=== PATIENT | male | born 1985 | race African-American/Black ===

== ENCOUNTER 2016-11-01 14:04 | Emergency (ER) | payer MEDICAID ==
[~2016-11-01] VITALS: Ht 182.9 cm; Wt 104.3 kg
[~2016-11-01 14:04] MED LIST: ASPI81TA27 PO; ENO100SY SC; METO25TA5 PO; NITR0.4S29 SL; PANT1INJ3 PO; TRIA37.575 PO; WARF5TAB PO
[2016-11-01 14:15] VITALS: BP 162/114
== END 2016-11-01 22:39 | disposition left against medical advice (07) ==
LOC: ER 14:04
DX: R03.0 Elevated blood-pressure reading, without diagnosis of hypertension (principal); Z53.21 Procedure and treatment not carried out due to patient leaving prior to being seen by health care provider

== ENCOUNTER 2016-11-12 12:30 | Emergency (ER) | payer MEDICAID ==
[~2016-11-12] VITALS: Ht 185.4 cm; Wt 104.3 kg
[2016-11-12] MEDS ORDERED: cloNIDine HCL 0.1 MG TAB ONE (12:35)
[2016-11-12] MEDS ORDERED: cloNIDine HCL 0.1 MG TAB PO ONE (12:45)
[2016-11-12 13:38] VITALS: BP 137/95
== END 2016-11-12 14:11 | disposition home or self-care (01) ==
LOC: ER 12:34 → EDBD 12:34 → ER 14:11
DX: I10 Essential (primary) hypertension (principal); I48.91 Unspecified atrial fibrillation; J45.909 Unspecified asthma, uncomplicated; Z79.01 Long term (current) use of anticoagulants

== ENCOUNTER 2017-12-16 09:57 | Inpatient (IN) | payer MEDICAID ==
[~2017-12-16] VITALS: Ht 182.9 cm; Wt 100.9 kg
[2017-12-16] MEDS ORDERED: PRA1C PO (10:39)
[2017-12-16] MEDS ORDERED: NALT50TA5 PO (10:39)
[2017-12-16] MEDS ORDERED: GABA300C10 PO (10:39)
[2017-12-16] MEDS ORDERED: CHOL20007 OR (10:39)
[2017-12-16] MEDS ORDERED: QUET100T46 PO ×2 (10:39)
[2017-12-16] MEDS ORDERED: METO25TA5 PO (10:39)
[2017-12-16] MEDS ORDERED: TRAZ50TA2 PO (10:39)
[2017-12-16 10:41] LABS: Basophils # (auto) 0.1 uL; Basophils % (auto) 1.3 % (0.0-2.0); Eosinophils # (auto) 0 uL; Eosinophils % (auto) 0.6 % (0.0-7.0); Hematocrit 43.3 % (41.0-53.0); Hemoglobin 14.7 g/dL (13.5-17.5); Lymphocytes % (auto) 45.6 % (10.0-50.0); Mean Corpuscular Hemoglobin 31.2 pg (28.0-32.0); Mean Corpuscular Hgb Conc. 33.9 g/dL (32.0-36.0); Monocytes # (auto) 0.5 uL; Monocytes % (auto) 12.6 % (0.0-12.0); Neutrophils # (auto) 1.7 uL; Neutrophils % (auto) 39.9 % (37.0-80.0); Nucleated Red Blood Cells % 0.1 %; Platelet Count (auto) 223 10^3/uL (140-450); Red Blood Cells 4.71 10^6/uL (4.5-5.90); White Blood Cell 4.3 10^3/uL (4.4-10.8)
[2017-12-16] MEDS ORDERED: METOPROLOL TARTRATE 1MG/1ML-5ML VIAL IV ONE (10:45)
[2017-12-16 11:07] LABS: Alanine Aminotransferase 112 U/L (16-61); Albumin 3.6 g/dL (3.4-5.0); Alkaline Phosphatase 77 U/L (45-117); Anion Gap 9 (5-15); Aspartate Aminotransferase 123 U/L (15-37); BUN/Creatinine Ratio 10.3; Bilirubin, Total 0.3 mg/dL (0.2-1.0); Blood Urea Nitrogen 10 mg/dL (7-18); Calcium 8.6 mg/dL (8.5-10.1); Carbon Dioxide 26 mmol/L (21-32); Chloride 108 mmol/L (98-107); GFR African American 116 mL/min; GFR Non-African American 96 mL/min; Glucose 105 mg/dL (74-106); Potassium 3.6 mmol/L (3.5-5.1); Sodium 143 mmol/L (136-145); Total Protein 7.7 g/dL (6.4-8.2)
[2017-12-16] MEDS ORDERED: AMIODARONE HCL 150 MG in D5W 5% 100 ML IV ONE (11:15)
[2017-12-16] MEDS ORDERED: AMIODARONE HCL 900 MG in DEXTROSE 500 ML IV SCH (11:25)
[2017-12-16] MEDS ORDERED: LACTULOSE 20Gm/30ML SOLN PO PRN (11:30)
[2017-12-16] MEDS ORDERED: cloNIDine HCL 0.1 MG TAB PO ONE (11:30)
[2017-12-16] MEDS ORDERED: TEMAZEPAM 15 MG CAP PO PRN (11:30)
[2017-12-16] MEDS ORDERED: ACETAMINOPHEN 500 MG TAB PO PRN (11:30)
[2017-12-16] MEDS ORDERED: LORazepam 0.5 MG TAB PO PRN (11:30)
[2017-12-16] MEDS ORDERED: NITROGLYCERIN 0.4 MG SL TAB SL PRN (11:30)
[2017-12-16] MEDS ORDERED: METOPROLOL TARTRATE 25 MG TAB PO ONE (12:00)
[2017-12-16] MEDS ORDERED: DIGOXIN (250MCG/ML) 2 ML AMPULE IV ONE (12:00)
[2017-12-16] MEDS: PROMETHAZINE HCL 25 MG/ML 1ML IV PRN ×2 (12:00→19:40)
[2017-12-16 12:06] LABS: INR 1.03 (0.9-1.15); Partial Thromboplastin Time 26.8 sec (22.64-33.71); Prothrombin Time 11.2 sec (9.37-12.3)
[2017-12-16] MEDS ORDERED: THIAMINE 100mg/ml INJ (200mg/2ml VIAL) IV ONE (12:15)
[2017-12-16] MEDS ORDERED: chlordiazePOXIDE HCL 25 MG CAP PO PRN (12:15)
[2017-12-16] MEDS ORDERED: IOHEXOL 350 MG/ML 100ML IJ ONE (12:51)
[2017-12-16 13:04] LABS: Amylase 74 U/L (25-115); Lipase 223 U/L (73-393)
[2017-12-16 13:20] VITALS: BP 154/93
[2017-12-16] MEDS: GABAPENTIN 300 MG CAP PO SCH ×2 (15:40→21:45)
[2017-12-16] MEDS: ENALAPRIL MALEATE 2.5 MG TAB PO SCH (15:41)
[2017-12-16 16:00] VITALS: BP 152/107
[2017-12-16] MEDS ORDERED: LABETALOL HCL 5 MG/ML ML 20ML VIAL IV PRN (17:15)
[2017-12-16] MEDS: chlordiazePOXIDE HCL 5 MG CAP PO SCH ×2 (17:30→23:40)
[2017-12-16] MEDS: WARFARIN SODIUM 5 MG TAB PO SCH (17:30)
[2017-12-16] MEDS: PRAZOSIN HCL 1 MG CAP PO SCH (17:31)
[2017-12-16] MEDS: ENOXAPARIN SOD 100 MG/1 ML SYRINGE SC SCH (17:31)
[2017-12-16 20:00] VITALS: BP 111/71
[2017-12-16] MEDS: AMIODARONE HCL 200 MG TAB PO SCH (21:45)
[2017-12-16] MEDS: QUEtiapine FUMARATE 100 MG TAB PO SCH (21:45)
[2017-12-16] MEDS: traZODone HCL 50 MG TAB PO SCH (21:45)
[2017-12-16] MEDS: METOPROLOL TARTRATE 25 MG TAB PO SCH (21:46)
[2017-12-16 23:50] VITALS: BP 116/74
[2017-12-17 04:01] VITALS: BP 127/87
[2017-12-17] MEDS: ENOXAPARIN SOD 100 MG/1 ML SYRINGE SC SCH ×2 (05:49→18:00)
[2017-12-17] MEDS: chlordiazePOXIDE HCL 5 MG CAP PO SCH ×4 (05:49→23:06)
[2017-12-17] MEDS: GABAPENTIN 300 MG CAP PO SCH ×3 (05:49→21:43)
[2017-12-17 06:07] LABS: Urine Bacteria NONE SEEN /hpf (None Seen); Urine Blood Negative /uL (Negative); Urine Specific Gravity 1.028 (1.001-1.035); Urine WBC <1 /hpf (0 - 3)
[2017-12-17 06:19] LABS: Basophils # (auto) 0.1 uL; Basophils % (auto) 0.8 % (0.0-2.0); Eosinophils # (auto) 0.1 uL; Eosinophils % (auto) 0.9 % (0.0-7.0); Hematocrit 41.1 % (41.0-53.0); Hemoglobin 13.7 g/dL (13.5-17.5); Lymphocytes # (auto) 2.3 uL; Lymphocytes % (auto) 35.9 % (10.0-50.0); Mean Corpuscular Hemoglobin 31.2 pg (28.0-32.0); Mean Corpuscular Hgb Conc. 33.3 g/dL (32.0-36.0); Mean Corpuscular Volume 93.7 fL (80.0-100.0); Monocytes # (auto) 0.7 uL; Monocytes % (auto) 11.2 % (0.0-12.0); Neutrophils # (auto) 3.2 uL; Neutrophils % (auto) 51.2 % (37.0-80.0); Nucleated Red Blood Cells % 0.1 %; Platelet Count (auto) 205 10^3/uL (140-450); Red Blood Cells 4.39 10^6/uL (4.5-5.90); White Blood Cell 6.3 10^3/uL (4.4-10.8)
[2017-12-17 06:21] LABS: INR 1.09 (0.9-1.15); Partial Thromboplastin Time 28.4 sec (22.64-33.71); Prothrombin Time 11.9 sec (9.37-12.3)
[2017-12-17 06:30] LABS: Alanine Aminotransferase 99 U/L (16-61); Albumin 3.3 g/dL (3.4-5.0); Alkaline Phosphatase 67 U/L (45-117); Anion Gap 8 (5-15); Aspartate Aminotransferase 86 U/L (15-37); BUN/Creatinine Ratio 8.6; Bilirubin, Total 0.4 mg/dL (0.2-1.0); Blood Urea Nitrogen 10 mg/dL (7-18); Calcium 8.1 mg/dL (8.5-10.1); Carbon Dioxide 27 mmol/L (21-32); Chloride 106 mmol/L (98-107); Cholesterol 127 mg/dL (< 200); GFR African American 94 mL/min; GFR Non-African American 78 mL/min; Glucose 96 mg/dL (74-106); HDL Cholesterol 54 mg/dL (40-59); Potassium 3.7 mmol/L (3.5-5.1); Sodium 141 mmol/L (136-145); Total Protein 6.7 g/dL (6.4-8.2); Triglycerides 552 mg/dL (< 150)
[2017-12-17 06:30] LABS: Amphetamine Screen, Urine NEGATIVE (NEGATIVE); Barbiturate Scree,Urine NEGATIVE (NEGATIVE); Benzodiazephine Screen, Urine NEGATIVE (NEGATIVE); Cannabinoid Screen, Urine NEGATIVE (NEGATIVE); Cocaine Screen, Urine NEGATIVE (NEGATIVE); Opiate Scree,Urine NEGATIVE (NEGATIVE); Phencyclidine Screen, Urine NEGATIVE (NEGATIVE)
[2017-12-17 08:00] VITALS: BP 148/99
[2017-12-17] MEDS: THIAMINE 100mg/ml INJ (200mg/2ml VIAL) IV SCH (10:29)
[2017-12-17] MEDS: TRIAMTERENE/HCTZ 37.5/25 MG CAP PO SCH (10:29)
[2017-12-17] MEDS: PANTOPRAZOLE 40 MG TAB PO SCH (10:29)
[2017-12-17] MEDS: ENALAPRIL MALEATE 2.5 MG TAB PO SCH (10:30)
[2017-12-17] MEDS: METOPROLOL TARTRATE 25 MG TAB PO SCH ×2 (10:30→21:43)
[2017-12-17] MEDS: ASPirin-EC 81 mg tab PO SCH (10:31)
[2017-12-17] MEDS: AMIODARONE HCL 200 MG TAB PO SCH (10:31)
[2017-12-17 12:00] VITALS: BP 142/90
[2017-12-17] MEDS ORDERED: SIMETHICONE 80 MG CHEWABLE TABLET PO ONE (15:45)
[2017-12-17] MEDS ORDERED: SIMETHICONE 80 MG CHEWABLE TABLET PO PRN (15:45)
[2017-12-17 16:00] VITALS: BP 138/87
[2017-12-17] MEDS: WARFARIN SODIUM 5 MG TAB PO SCH (17:58)
[2017-12-17] MEDS: PRAZOSIN HCL 1 MG CAP PO SCH (17:58)
[2017-12-17] MEDS: traZODone HCL 50 MG TAB PO SCH (21:41)
[2017-12-17] MEDS: QUEtiapine FUMARATE 100 MG TAB PO SCH (21:44)
[2017-12-17 22:00] VITALS: BP 131/84
[2017-12-18 05:00] VITALS: BP 128/77
[2017-12-18] MEDS: ENOXAPARIN SOD 100 MG/1 ML SYRINGE SC SCH (05:24)
[2017-12-18] MEDS: chlordiazePOXIDE HCL 5 MG CAP PO SCH ×2 (05:24→12:00)
[2017-12-18] MEDS: GABAPENTIN 300 MG CAP PO SCH ×2 (05:24→13:44)
[2017-12-18 07:30] LABS: INR 1.14 (0.9-1.15); Partial Thromboplastin Time 29.4 sec (22.64-33.71); Prothrombin Time 12.4 sec (9.37-12.3)
[2017-12-18 07:40] LABS: Basophils # (auto) 0 uL; Basophils % (auto) 0.9 % (0.0-2.0); Eosinophils # (auto) 0.1 uL; Eosinophils % (auto) 1.8 % (0.0-7.0); Hematocrit 43.3 % (41.0-53.0); Hemoglobin 14.6 g/dL (13.5-17.5); Lymphocytes # (auto) 1.3 uL; Lymphocytes % (auto) 26.6 % (10.0-50.0); Mean Corpuscular Hemoglobin 31.4 pg (28.0-32.0); Mean Corpuscular Hgb Conc. 33.6 g/dL (32.0-36.0); Mean Corpuscular Volume 93.2 fL (80.0-100.0); Monocytes # (auto) 0.6 uL; Monocytes % (auto) 11.6 % (0.0-12.0); Neutrophils # (auto) 2.8 uL; Neutrophils % (auto) 59.1 % (37.0-80.0); Nucleated Red Blood Cells % 0.2 %; Platelet Count (auto) 199 10^3/uL (140-450); Red Blood Cells 4.64 10^6/uL (4.5-5.90); Red Cell Distribution Width 14.8 % (11.8-14.3); White Blood Cell 4.8 10^3/uL (4.4-10.8)
[2017-12-18 08:00] VITALS: BP 117/73
[2017-12-18 09:06] VITALS: BP 141/96
[2017-12-18] MEDS: THIAMINE 100mg/ml INJ (200mg/2ml VIAL) IV SCH (09:55)
[2017-12-18] MEDS: PANTOPRAZOLE 40 MG TAB PO SCH (09:56)
[2017-12-18] MEDS: TRIAMTERENE/HCTZ 37.5/25 MG CAP PO SCH (09:56)
[2017-12-18] MEDS: ASPirin-EC 81 mg tab PO SCH (09:56)
[2017-12-18] MEDS: METOPROLOL TARTRATE 25 MG TAB PO SCH (09:56)
[2017-12-18] MEDS: ENALAPRIL MALEATE 2.5 MG TAB PO SCH (09:56)
[2017-12-18] MEDS ORDERED: AMIODARONE HCL 200 MG TAB PO SCH (10:00)
[2017-12-18 11:57] VITALS: BP 147/87
[2017-12-18] MEDS ORDERED: MET25T PO (13:53)
[2017-12-18 13:58] VITALS: BP 147/87
[2017-12-18] MEDS ORDERED: METOPROLOL TARTRATE 25 MG TAB PO SCH (22:00)
[2017-12-19 09:39] LABS: Hepatitis B Surface Antibody Positive
[2017-12-19] MEDS ORDERED: THIAMINE HCL 100 MG TAB PO SCH (10:00)
[2017-12-19 10:16] LABS: Hepatitis A Total Antibody Positive
[2017-12-19 13:34] LABS: Hepatitis B Core Total AB Negative; Hepatitis C Antibody Negative (Negative)
== END 2017-12-18 14:27 | disposition home or self-care (01) | DRG 194 ==
LOC: EDBD 09:57 → ER 09:57 → TELE 09:58 → DOU IN ICU 13:18 → TELE-EAST 12-17 20:16
PROVIDERS: ADMIT Internal Medicine; ATTEND Internal Medicine
DX: I11.0 Hypertensive heart disease with heart failure (principal); D68.69 Other thrombophilia; I48.0 Paroxysmal atrial fibrillation; I50.31 Acute diastolic (congestive) heart failure; F43.10 Post-traumatic stress disorder, unspecified; R00.0 Tachycardia, unspecified; F10.10 Alcohol abuse, uncomplicated; E78.1 Pure hyperglyceridemia; J45.909 Unspecified asthma, uncomplicated; Z79.82 Long term (current) use of aspirin; Z82.49 Family history of ischemic heart disease and other diseases of the circulatory system; Z86.711 Personal history of pulmonary embolism; Z83.3 Family history of diabetes mellitus; Z91.19 Patient's noncompliance with other medical treatment and regimen
CPT/HCPCS: 36415; 71045; 71260; 74177; 76705; 80053; 80061; 80307; 81001; 82150; 82550; 83690; 83880; 84443; 84484; 85025; 85379; 85610; 85652; 85730; 86141; 86704; 86706; 86708; 86803; 87081; 87340; 93005; 93306; 96374; 96375; 99291; J7060

== ENCOUNTER 2018-03-02 19:30 | Inpatient (IN) | payer MEDICAID, OTHER ==
[~2018-03-02] VITALS: Ht 182.9 cm; Wt 103.4 kg
[~2018-03-02 19:30] MED LIST changes: +CHOL20007 OR; -ENO100SY SC; +GABA300C10 PO; +MET25T PO; -METO25TA5 PO; +PRA1C PO; +QUET100T46 PO; +TRAZ50TA2 PO; -WARF5TAB PO
[2018-03-02] MEDS ORDERED: METOPROLOL TARTRATE 50 MG TAB PO ONE (19:45)
[2018-03-02] MEDS ORDERED: DIGOXIN (250MCG/ML) 2 ML AMPULE IV ONE (19:45)
[2018-03-02] MEDS ORDERED: LORazepam 2MG/ML-1ML VIAL ONE (19:54)
[2018-03-02] MEDS ORDERED: LORazepam 2MG/ML-1ML VIAL IV ONE (20:00)
[2018-03-02] MEDS ORDERED: THIAMINE INJ 100 MG, MULTIPLE VITAMIN 10 ML, FOLIC ACID 1 MG, MAGNESIUM SULF SDV 50% 8 ... IV STA ×5 (20:03)
[2018-03-02 20:08] LABS: Basophils # (auto) 0.1 uL; Basophils % (auto) 1.9 % (0.0-2.0); Eosinophils # (auto) 0.1 uL; Eosinophils % (auto) 1.1 % (0.0-7.0); Hematocrit 43.3 % (41.0-53.0); Hemoglobin 14.5 g/dL (13.5-17.5); Lymphocytes # (auto) 2.1 uL; Lymphocytes % (auto) 42.2 % (10.0-50.0); Mean Corpuscular Hgb Conc. 33.4 g/dL (32.0-36.0); Mean Corpuscular Volume 95.7 fL (80.0-100.0); Monocytes # (auto) 0.6 uL; Monocytes % (auto) 12.2 % (0.0-12.0); Neutrophils # (auto) 2.1 uL; Neutrophils % (auto) 42.6 % (37.0-80.0); Nucleated Red Blood Cells % 0.1 %; Platelet Count (auto) 203 10^3/uL (140-450); Red Blood Cells 4.53 10^6/uL (4.5-5.90); Red Cell Distribution Width 13.8 % (11.8-14.3)
[2018-03-02 20:23] LABS: Alanine Aminotransferase 173 U/L (16-61); Albumin 3.4 g/dL (3.4-5.0); Anion Gap 13 (5-15); Aspartate Aminotransferase 125 U/L (15-37); BUN/Creatinine Ratio 9.2; Blood Urea Nitrogen 8 mg/dL (7-18); Calcium 7.7 mg/dL (8.5-10.1); Carbon Dioxide 19 mmol/L (21-32); Chloride 112 mmol/L (98-107); GFR African American 132 mL/min; GFR Non-African American 109 mL/min; Glucose 96 mg/dL (74-106); Potassium 3.8 mmol/L (3.5-5.1); Sodium 144 mmol/L (136-145)
[2018-03-02 20:26] LABS: Alkaline Phosphatase 72 U/L (45-117); Bilirubin, Total 0.2 mg/dL (0.2-1.0); Total Protein 7.1 g/dL (6.4-8.2)
[2018-03-02 20:31] LABS: Partial Thromboplastin Time 25.4 sec (23.78-33.04); Prothrombin Time 10.7 sec (9.27-12.13)
[2018-03-02] MEDS ORDERED: METOPROLOL TARTRATE 1MG/1ML-5ML VIAL IV ONE (20:45)
[2018-03-02 21:48] LABS: Urine Bacteria NONE SEEN /hpf (None Seen); Urine Blood Negative /uL (Negative); Urine Specific Gravity 1.005 (1.001-1.035); Urine WBC <1 /hpf (0 - 3)
[2018-03-02 22:01] LABS: Amphetamine Screen, Urine NEGATIVE (NEGATIVE); Barbiturate Scree,Urine NEGATIVE (NEGATIVE); Benzodiazephine Screen, Urine NEGATIVE (NEGATIVE); Cannabinoid Screen, Urine NEGATIVE (NEGATIVE); Cocaine Screen, Urine NEGATIVE (NEGATIVE); Opiate Scree,Urine NEGATIVE (NEGATIVE); Phencyclidine Screen, Urine NEGATIVE (NEGATIVE)
[2018-03-02] MEDS ORDERED: MORPHINE SULF INJ 2 MG/ML SYRINGE 1ML IV PRN (23:00)
[2018-03-02] MEDS ORDERED: NITROGLYCERIN 0.4 MG SL TAB SL PRN (23:00)
[2018-03-02] MEDS ORDERED: ONDANSETRON HCL 4 MG/2 ML VIAL IV PRN (23:00)
[2018-03-02] MEDS ORDERED: TEMAZEPAM 15 MG CAP PO PRN (23:00)
[2018-03-02] MEDS ORDERED: ACETAMINOPHEN 325 MG TAB PO PRN (23:00)
[2018-03-03] MEDS ORDERED: LORA1TAB12 PO (01:53)
[2018-03-03] MEDS ORDERED: HYDR50TA69 PO (01:53)
[2018-03-03] MEDS ORDERED: SERT-160 PO (01:53)
[2018-03-03] MEDS ORDERED: OMEP20TA PO (01:53)
[2018-03-03] MEDS ORDERED: MULTCAP45 PO (01:53)
[2018-03-03 05:00] VITALS: BP 130/75
[2018-03-03] MEDS: GABAPENTIN 300 MG CAP PO SCH ×3 (05:45→21:46)
[2018-03-03 08:00] VITALS: BP 114/73
[2018-03-03 08:23] LABS: Basophils # (auto) 0.1 uL; Basophils % (auto) 1.1 % (0.0-2.0); Eosinophils # (auto) 0.1 uL; Eosinophils % (auto) 2.6 % (0.0-7.0); Hematocrit 43.5 % (41.0-53.0); Hemoglobin 14.4 g/dL (13.5-17.5); Lymphocytes # (auto) 2.4 uL; Lymphocytes % (auto) 49.2 % (10.0-50.0); Mean Corpuscular Hemoglobin 31.5 pg (28.0-32.0); Mean Corpuscular Volume 95.4 fL (80.0-100.0); Monocytes # (auto) 0.6 uL; Monocytes % (auto) 11.6 % (0.0-12.0); Neutrophils # (auto) 1.7 uL; Neutrophils % (auto) 35.5 % (37.0-80.0); Nucleated Red Blood Cells % 0.1 %; Platelet Count (auto) 211 10^3/uL (140-450); Red Blood Cells 4.56 10^6/uL (4.5-5.90); Red Cell Distribution Width 13.8 % (11.8-14.3); White Blood Cell 4.9 10^3/uL (4.4-10.8)
[2018-03-03 08:42] LABS: Albumin 3.2 g/dL (3.4-5.0); BUN/Creatinine Ratio 7.4; Bilirubin, Total 0.3 mg/dL (0.2-1.0); Calcium 7.9 mg/dL (8.5-10.1); Potassium 3.9 mmol/L (3.5-5.1); Total Protein 7.1 g/dL (6.4-8.2)
[2018-03-03 09:00] VITALS: BP 114/73
[2018-03-03] MEDS: ENOXAPARIN SOD 40 MG/0.4 ML SYRINGE SC SCH (09:15)
[2018-03-03] MEDS: TRIAMTERENE/HCTZ 75/50MG TABLET PO SCH (09:15)
[2018-03-03] MEDS: FAMOTIDINE 20 MG TAB PO SCH ×2 (09:16→21:46)
[2018-03-03] MEDS: METOPROLOL TARTRATE 50 MG TAB PO SCH ×2 (09:16→22:09)
[2018-03-03] MEDS: ASPirin 81 mg TAB PO SCH (09:16)
[2018-03-03 13:00] VITALS: BP 154/92
[2018-03-03 17:00] VITALS: BP 156/106
[2018-03-03 22:00] VITALS: BP 154/105
[2018-03-03] MEDS ORDERED: QUEtiapine FUMARATE 100 MG TAB PO SCH (22:00)
[2018-03-04 05:00] VITALS: BP 127/80
[2018-03-04] MEDS: GABAPENTIN 300 MG CAP PO SCH ×2 (06:29→13:40)
[2018-03-04 08:00] VITALS: BP 141/95
[2018-03-04 09:00] VITALS: BP 141/95
[2018-03-04] MEDS ORDERED: AMIODARONE HCL 200 MG TAB PO SCH (10:00)
[2018-03-04] MEDS: ASPirin 81 mg TAB PO SCH (10:17)
[2018-03-04] MEDS: TRIAMTERENE/HCTZ 75/50MG TABLET PO SCH (10:19)
[2018-03-04] MEDS: METOPROLOL TARTRATE 50 MG TAB PO SCH (10:19)
[2018-03-04] MEDS: FAMOTIDINE 20 MG TAB PO SCH (10:20)
[2018-03-04] MEDS: ENOXAPARIN SOD 40 MG/0.4 ML SYRINGE SC SCH (10:20)
[2018-03-04] MEDS ORDERED: LACTULOSE 20Gm/30ML SOLN PO ONE (10:45)
[2018-03-04] MEDS ORDERED: LACTULOSE 20Gm/30ML SOLN PO PRN (10:45)
[2018-03-04 13:00] VITALS: BP 145/98
[2018-03-04 13:44] VITALS: BP 145/98
== END 2018-03-04 15:00 | disposition home or self-care (01) | DRG 896 ==
LOC: EDBD 19:30 → ER 19:31 → TELE 19:32 → TELE-WESTW 03-03 00:55
PROVIDERS: ADMIT Nurse Practitioner; ATTEND Family Medicine
DX: F10.129 Alcohol abuse with intoxication, unspecified (principal); G92 Toxic encephalopathy; I50.31 Acute diastolic (congestive) heart failure; I48.92 Unspecified atrial flutter; I47.1 Supraventricular tachycardia; I11.0 Hypertensive heart disease with heart failure; I48.0 Paroxysmal atrial fibrillation; E66.9 Obesity, unspecified; E78.1 Pure hyperglyceridemia; Z68.30 Body mass index [BMI] 30.0-30.9, adult; E78.5 Hyperlipidemia, unspecified; F32.9 Major depressive disorder, single episode, unspecified; F43.10 Post-traumatic stress disorder, unspecified; Y90.9 Presence of alcohol in blood, level not specified; I08.0 Rheumatic disorders of both mitral and aortic valves; J45.909 Unspecified asthma, uncomplicated; Z82.49 Family history of ischemic heart disease and other diseases of the circulatory system; Z86.711 Personal history of pulmonary embolism; Z83.3 Family history of diabetes mellitus; Z91.19 Patient's noncompliance with other medical treatment and regimen
CPT/HCPCS: 36415; 71045; 80053; 80307; 80320; 81001; 83880; 84484; 85025; 85379; 85610; 85730; 93005; 94761; 96365; 96375; J2405

== ENCOUNTER 2018-05-23 21:59 | Emergency (ER) | payer OTHER ==
[~2018-05-23] VITALS: Ht 182.9 cm; Wt 104.3 kg
[~2018-05-23 21:59] MED LIST changes: +HYDR50TA69 PO; +LORA1TAB12 PO; +MULTCAP45 PO; +OMEP20TA PO; +SERT-160 PO; +TRIA37.55 PO; -TRIA37.575 PO
[2018-05-23] MEDS ORDERED: DILTIAZEM HCL 25 MG/5 ML VIAL IV ONE (22:15)
[2018-05-23] MEDS ORDERED: ONDANSETRON HCL 4 MG/2 ML VIAL IV ONE (22:30)
[2018-05-23 22:36] LABS: Basophils # (auto) 0 uL; Basophils % (auto) 1.2 % (0.0-2.0); Eosinophils # (auto) 0 uL; Hematocrit 44.2 % (41.0-53.0); Hemoglobin 15.1 g/dL (13.5-17.5); Lymphocytes # (auto) 1.9 uL; Mean Corpuscular Hemoglobin 32.4 pg (28.0-32.0); Mean Corpuscular Hgb Conc. 34.1 g/dL (32.0-36.0); Mean Corpuscular Volume 95.1 fL (80.0-100.0); Monocytes # (auto) 0.6 uL; Monocytes % (auto) 16.5 % (0.0-12.0); Neutrophils # (auto) 1.1 uL; Neutrophils % (auto) 29.3 % (37.0-80.0); Nucleated Red Blood Cells % 0.2 %; Platelet Count (auto) 224 10^3/uL (140-450); Red Blood Cells 4.65 10^6/uL (4.5-5.90); Red Cell Distribution Width 14.5 % (11.8-14.3); White Blood Cell 3.7 10^3/uL (4.4-10.8)
[2018-05-23 22:54] LABS: Alanine Aminotransferase 138 U/L (16-61); Albumin 3.9 g/dL (3.4-5.0); Anion Gap 13 (5-15); Aspartate Aminotransferase 104 U/L (15-37); BUN/Creatinine Ratio 8.3; Blood Urea Nitrogen 9 mg/dL (7-18); Calcium 7.8 mg/dL (8.5-10.1); Carbon Dioxide 25 mmol/L (21-32); Chloride 108 mmol/L (98-107); GFR African American 103 mL/min; GFR Non-African American 85 mL/min; Glucose 112 mg/dL (74-106); Magnesium 2.5 mg/dL (1.6-2.6); Sodium 146 mmol/L (136-145)
[2018-05-23 22:58] LABS: Alkaline Phosphatase 79 U/L (45-117); Bilirubin, Total 0.3 mg/dL (0.2-1.0); Total Protein 8.2 g/dL (6.4-8.2)
[2018-05-23 23:02] LABS: Potassium 3.6 mmol/L (3.5-5.1)
[2018-05-23] MEDS ORDERED: DIGOXIN (250MCG/ML) 2 ML AMPULE IV ONE (23:15)
[2018-05-23 23:50] LABS: INR 0.97 (0.9-1.15); Partial Thromboplastin Time 26.1 sec (23.78-33.04); Prothrombin Time 10.4 sec (9.27-12.13)
[2018-05-24] MEDS ORDERED: DIGOXIN (250MCG/ML) 2 ML AMPULE IV ONE (00:15)
[2018-05-24] MEDS ORDERED: ASPirin 81 mg TAB PO ONE (00:15)
[2018-05-24 01:34] VITALS: BP 153/113
[2018-05-24] MEDS ORDERED: METOPROLOL TARTRATE 50 MG TAB PO ONE (01:45)
[2018-05-24] MEDS ORDERED: NITROGLYCERIN 0.4 MG SL TAB SL PRN (01:45)
[2018-05-24] MEDS ORDERED: ONDANSETRON HCL 4 MG/2 ML VIAL IV PRN (01:45)
[2018-05-24] MEDS ORDERED: MORPHINE SULFATE 4 MG/ML SYR/VIAL IV PRN (01:45)
[2018-05-24] MEDS ORDERED: FAMOTIDINE 20 MG TAB PO SCH (10:00)
[2018-05-24] MEDS ORDERED: METOPROLOL TARTRATE 50 MG TAB PO SCH (10:00)
[2018-05-24] MEDS ORDERED: SERTRALINE HCL 50 MG TAB PO SCH (10:00)
[2018-05-24] MEDS ORDERED: ENOXAPARIN SOD 40 MG/0.4 ML SYRINGE SC SCH (10:00)
[2018-05-24] MEDS ORDERED: TRIAMTERENE/HCTZ 75/50MG TABLET PO SCH (10:00)
== END 2018-05-24 01:50 | disposition home or self-care (01) ==
LOC: ER 21:59
DX: I48.91 Unspecified atrial fibrillation (principal); I10 Essential (primary) hypertension; J45.909 Unspecified asthma, uncomplicated; E78.5 Hyperlipidemia, unspecified; Z86.711 Personal history of pulmonary embolism
CPT/HCPCS: 36415; 71045; 80053; 83735; 83880; 84484; 85025; 85379; 85610; 85730; 93005; 96374; 96375; 96376; 99285; J1160; J2405

== ENCOUNTER 2018-06-04 13:02 | Emergency (ER) | payer OTHER ==
[~2018-06-04] VITALS: Ht 182.9 cm; Wt 104.3 kg
[2018-06-04 14:42] VITALS: BP 145/101
== END 2018-06-04 15:00 | disposition home or self-care (01) ==
LOC: EDBD 13:02 → ER 13:02
DX: M79.671 Pain in right foot (principal); I48.91 Unspecified atrial fibrillation; J45.909 Unspecified asthma, uncomplicated; E78.5 Hyperlipidemia, unspecified; I10 Essential (primary) hypertension; Z86.711 Personal history of pulmonary embolism
CPT/HCPCS: 73610

== ENCOUNTER 2018-06-26 03:54 | Inpatient (IN) | payer OTHER ==
[~2018-06-26] VITALS: Ht 182.9 cm; Wt 106.3 kg
[2018-06-26 05:36] LABS: Basophils # (auto) 0.1 uL; Basophils % (auto) 1.5 % (0.0-2.0); Eosinophils # (auto) 0.1 uL; Eosinophils % (auto) 1.4 % (0.0-7.0); Hematocrit 44.5 % (41.0-53.0); Lymphocytes % (auto) 32.2 % (10.0-50.0); Mean Corpuscular Hemoglobin 32.8 pg (28.0-32.0); Mean Corpuscular Hgb Conc. 33.7 g/dL (32.0-36.0); Mean Corpuscular Volume 97.4 fL (80.0-100.0); Monocytes # (auto) 0.9 uL; Monocytes % (auto) 14.8 % (0.0-12.0); Neutrophils # (auto) 3.1 uL; Neutrophils % (auto) 50.1 % (37.0-80.0); Nucleated Red Blood Cells % 0.1 %; Platelet Count (auto) 191 10^3/uL (140-450); Red Blood Cells 4.58 10^6/uL (4.5-5.90); Red Cell Distribution Width 15.5 % (11.8-14.3); White Blood Cell 6.2 10^3/uL (4.4-10.8)
[2018-06-26] MEDS ORDERED: cloNIDine HCL 0.1 MG TAB PO ONE ×2 (06:00→07:30)
[2018-06-26 06:05] LABS: Albumin 3.8 g/dL (3.4-5.0); Calcium 9.1 mg/dL (8.5-10.1); Magnesium 1.6 mg/dL (1.6-2.6); Potassium 3.8 mmol/L (3.5-5.1)
[2018-06-26 06:09] LABS: BUN/Creatinine Ratio 9.4; Bilirubin, Total 0.4 mg/dL (0.2-1.0); Total Protein 8.1 g/dL (6.4-8.2)
[2018-06-26] MEDS ORDERED: SODIUM CHLORIDE 0.9% 1,000 ML IV ONE ×2 (07:18→08:00)
[2018-06-26 07:45] LABS: Urine WBC None Seen /hpf (0 - 3)
[2018-06-26 07:55] LABS: Urine Bacteria NONE SEEN /hpf (None Seen); Urine Blood Negative /uL (Negative); Urine Specific Gravity 1.014 (1.001-1.035)
[2018-06-26] MEDS ORDERED: ACETAMINOPHEN 325 MG TAB PO PRN (09:00)
[2018-06-26] MEDS ORDERED: MORPHINE SULFATE 4 MG/ML SYR/VIAL IV PRN ×2 (09:00)
[2018-06-26] MEDS ORDERED: NITROGLYCERIN 0.4 MG SL TAB SL PRN (09:00)
[2018-06-26] MEDS ORDERED: HYDROcodone-ACET 5/325MG TAB PO PRN (09:00)
[2018-06-26] MEDS ORDERED: hydrOXYzine 25 MG TAB or CAP PO PRN (09:00)
[2018-06-26] MEDS ORDERED: ONDANSETRON HCL 4 MG/2 ML VIAL IV PRN (09:00)
[2018-06-26] MEDS ORDERED: LORazepam 0.5 MG TAB PO PRN (09:00)
[2018-06-26] MEDS ORDERED: cloNIDine HCL 0.1 MG TAB PO PRN (09:00)
[2018-06-26] MEDS ORDERED: DOCUSATE SOD 100 MG CAP PO PRN (09:00)
[2018-06-26] MEDS ORDERED: TEMAZEPAM 15 MG CAP PO PRN (09:00)
[2018-06-26] MEDS: SODIUM CHLORIDE 0.9% 1,000 ML IV SCH (09:07)
[2018-06-26 09:24] LABS: Alcohol, Urine < 3.0 mg/dL (0-5); Amphetamine Screen, Urine NEGATIVE (NEGATIVE); Barbiturate Scree,Urine NEGATIVE (NEGATIVE); Benzodiazephine Screen, Urine NEGATIVE (NEGATIVE); Cannabinoid Screen, Urine NEGATIVE (NEGATIVE); Cocaine Screen, Urine NEGATIVE (NEGATIVE); Opiate Scree,Urine NEGATIVE (NEGATIVE); Phencyclidine Screen, Urine NEGATIVE (NEGATIVE)
[2018-06-26] MEDS: FAMOTIDINE 20 MG TAB PO SCH ×2 (09:43→22:54)
[2018-06-26] MEDS: TRIAMTERENE/HCTZ 37.5/25 MG CAP/TAB PO SCH (09:43)
[2018-06-26] MEDS: ASPirin-EC 81 mg tab PO SCH (09:43)
[2018-06-26] MEDS: METOPROLOL TARTRATE 25 MG TAB PO SCH ×2 (09:43→22:55)
[2018-06-26] MEDS: MULTIPLE VITAMIN TAB PO SCH (09:43)
[2018-06-26] MEDS: PANTOPRAZOLE 40 MG TAB PO SCH (09:44)
[2018-06-26] MEDS: CHOLECALCIFEROL (VITD3) 1,000 UNIT TAB PO SCH (09:44)
[2018-06-26] MEDS: SERTRALINE HCL 50 MG TAB PO SCH (09:44)
[2018-06-26 13:07] LABS: Amylase 86 U/L (25-115); Lipase 466 U/L (73-393)
[2018-06-26] MEDS: GABAPENTIN 300 MG CAP PO SCH ×2 (14:16→22:54)
[2018-06-26 14:38] LABS: INR 0.95 (0.9-1.15); Prothrombin Time 10.2 sec (9.27-12.13)
[2018-06-26] MEDS: PRAZOSIN HCL 1 MG CAP PO SCH (22:00)
[2018-06-26] MEDS: traZODone HCL 50 MG TAB PO SCH (22:55)
[2018-06-26] MEDS: QUEtiapine FUMARATE 100 MG TAB PO SCH (22:55)
[2018-06-27] MEDS: SODIUM CHLORIDE 0.9% 1,000 ML IV SCH ×2 (02:03→18:20)
[2018-06-27 05:14] VITALS: BP 125/74
[2018-06-27 06:03] LABS: Basophils # (auto) 0.1 uL; Basophils % (auto) 1.1 % (0.0-2.0); Eosinophils # (auto) 0.1 uL; Eosinophils % (auto) 1.6 % (0.0-7.0); Hematocrit 41.6 % (41.0-53.0); Lymphocytes # (auto) 1.8 uL; Lymphocytes % (auto) 34.7 % (10.0-50.0); Mean Corpuscular Hgb Conc. 33.7 g/dL (32.0-36.0); Monocytes # (auto) 0.8 uL; Monocytes % (auto) 15.3 % (0.0-12.0); Neutrophils # (auto) 2.4 uL; Neutrophils % (auto) 47.3 % (37.0-80.0); Nucleated Red Blood Cells % 0.1 %; Platelet Count (auto) 177 10^3/uL (140-450); Red Blood Cells 4.24 10^6/uL (4.5-5.90); Red Cell Distribution Width 15.9 % (11.8-14.3); White Blood Cell 5.1 10^3/uL (4.4-10.8)
[2018-06-27 06:28] LABS: Albumin 3.4 g/dL (3.4-5.0); Calcium 8.6 mg/dL (8.5-10.1); Potassium 3.6 mmol/L (3.5-5.1)
[2018-06-27] MEDS: GABAPENTIN 300 MG CAP PO SCH ×3 (06:30→22:01)
[2018-06-27 06:31] LABS: BUN/Creatinine Ratio 12.1; Bilirubin, Total 0.3 mg/dL (0.2-1.0); Total Protein 7.2 g/dL (6.4-8.2)
[2018-06-27 06:40] LABS: Amylase 101 U/L (25-115); Lipase 597 U/L (73-393)
[2018-06-27 08:57] VITALS: BP 125/70
[2018-06-27] MEDS: CHOLECALCIFEROL (VITD3) 1,000 UNIT TAB PO SCH (11:31)
[2018-06-27] MEDS: SERTRALINE HCL 50 MG TAB PO SCH (11:32)
[2018-06-27] MEDS: ASPirin-EC 81 mg tab PO SCH (11:32)
[2018-06-27] MEDS: TRIAMTERENE/HCTZ 37.5/25 MG CAP/TAB PO SCH (11:33)
[2018-06-27] MEDS: FAMOTIDINE 20 MG TAB PO SCH ×2 (11:33→22:01)
[2018-06-27] MEDS: PANTOPRAZOLE 40 MG TAB PO SCH (11:33)
[2018-06-27] MEDS: METOPROLOL TARTRATE 25 MG TAB PO SCH ×2 (11:34→22:01)
[2018-06-27] MEDS: MULTIPLE VITAMIN TAB PO SCH (11:34)
[2018-06-27 13:00] VITALS: BP 130/101
[2018-06-27 17:00] VITALS: BP 143/94
[2018-06-27 20:52] VITALS: BP 158/108
[2018-06-27] MEDS: PRAZOSIN HCL 1 MG CAP PO SCH (22:00)
[2018-06-27] MEDS: traZODone HCL 50 MG TAB PO SCH (22:01)
[2018-06-27] MEDS: QUEtiapine FUMARATE 100 MG TAB PO SCH (22:01)
[2018-06-28 05:22] VITALS: BP 145/93
[2018-06-28 05:29] LABS: Hematocrit 43.4 % (41.0-53.0); Hemoglobin 14.4 g/dL (13.5-17.5)
[2018-06-28 05:49] LABS: Alanine Aminotransferase 131 U/L (16-61); Aspartate Aminotransferase 64 U/L (15-37)
[2018-06-28] MEDS: GABAPENTIN 300 MG CAP PO SCH (06:19)
[2018-06-28 08:19] VITALS: BP 150/66
[2018-06-28] MEDS: ASPirin-EC 81 mg tab PO SCH (09:49)
[2018-06-28] MEDS: TRIAMTERENE/HCTZ 37.5/25 MG CAP/TAB PO SCH (09:49)
[2018-06-28] MEDS: SERTRALINE HCL 50 MG TAB PO SCH (09:50)
[2018-06-28] MEDS: MULTIPLE VITAMIN TAB PO SCH (09:50)
[2018-06-28] MEDS: CHOLECALCIFEROL (VITD3) 1,000 UNIT TAB PO SCH (09:50)
[2018-06-28] MEDS: METOPROLOL TARTRATE 25 MG TAB PO SCH (09:50)
[2018-06-28] MEDS: FAMOTIDINE 20 MG TAB PO SCH (09:50)
[2018-06-28] MEDS: PANTOPRAZOLE 40 MG TAB PO SCH (09:50)
[2018-06-28] MEDS: SODIUM CHLORIDE 0.9% 1,000 ML IV SCH (09:51)
[2018-06-28 10:45] VITALS: BP 150/66
== END 2018-06-28 11:35 | disposition home or self-care (01) | DRG 392 ==
LOC: ER 03:56 → TELE 09:04 → TELE-CENTR 14:18 → CENTRAL 06-27 12:20
PROVIDERS: ADMIT Internal Medicine; ATTEND Internal Medicine
DX: K52.9 Noninfective gastroenteritis and colitis, unspecified (principal); I48.92 Unspecified atrial flutter; K80.20 Calculus of gallbladder without cholecystitis without obstruction; K70.0 Alcoholic fatty liver; E78.5 Hyperlipidemia, unspecified; F41.9 Anxiety disorder, unspecified; I10 Essential (primary) hypertension; I48.91 Unspecified atrial fibrillation; J45.909 Unspecified asthma, uncomplicated; K42.9 Umbilical hernia without obstruction or gangrene; K59.00 Constipation, unspecified; R79.89 Other specified abnormal findings of blood chemistry; F43.10 Post-traumatic stress disorder, unspecified; R94.5 Abnormal results of liver function studies; R16.0 Hepatomegaly, not elsewhere classified; Z86.711 Personal history of pulmonary embolism
CPT/HCPCS: 36415; 74176; 76705; 80053; 80307; 81001; 82150; 83690; 83735; 84450; 84460; 85014; 85018; 85025; 85610; 96360; G0378

== ENCOUNTER 2018-11-29 20:27 | Emergency (ER) | payer SELFPAY ==
[~2018-11-29] VITALS: Ht 182.9 cm; Wt 104.3 kg
[2018-11-29 20:51] VITALS: BP 142/98
[2018-11-29 21:24] LABS: Basophils # (auto) 0.1 uL; Eosinophils # (auto) 0.1 uL; Eosinophils % (auto) 1.5 % (0.0-7.0); Hematocrit 45.9 % (41.0-53.0); Hemoglobin 15.3 g/dL (13.5-17.5); Lymphocytes # (auto) 1.6 uL; Lymphocytes % (auto) 28.7 % (10.0-50.0); Mean Corpuscular Hemoglobin 32.5 pg (28.0-32.0); Mean Corpuscular Hgb Conc. 33.2 g/dL (32.0-36.0); Mean Corpuscular Volume 97.7 fL (80.0-100.0); Monocytes # (auto) 0.8 uL; Monocytes % (auto) 13.8 % (0.0-12.0); Neutrophils # (auto) 3.1 uL; Nucleated Red Blood Cells % 0.1 %; Platelet Count (auto) 234 10^3/uL (140-450); Red Cell Distribution Width 14.3 % (11.8-14.3); White Blood Cell 5.7 10^3/uL (4.4-10.8)
[2018-11-29 21:36] LABS: Alcohol, Urine < 3.0 mg/dL (0-5); Amphetamine Screen, Urine NEGATIVE (NEGATIVE); Barbiturate Scree,Urine NEGATIVE (NEGATIVE); Benzodiazephine Screen, Urine NEGATIVE (NEGATIVE); Cannabinoid Screen, Urine NEGATIVE (NEGATIVE); Cocaine Screen, Urine NEGATIVE (NEGATIVE); Opiate Scree,Urine NEGATIVE (NEGATIVE); Phencyclidine Screen, Urine NEGATIVE (NEGATIVE)
[2018-11-29 21:54] LABS: Chloride 108 mmol/L (98-107); Sodium 141 mmol/L (136-145)
[2018-11-29 22:04] LABS: Alanine Aminotransferase 69 U/L (16-61); Albumin 3.8 g/dL (3.4-5.0); Alkaline Phosphatase 58 U/L (45-117); Anion Gap 8 (5-15); Aspartate Aminotransferase 31 U/L (15-37); BUN/Creatinine Ratio 9.9; Bilirubin, Total 0.3 mg/dL (0.2-1.0); Blood Urea Nitrogen 10 mg/dL (7-18); Calcium 9.2 mg/dL (8.5-10.1); Carbon Dioxide 25 mmol/L (21-32); GFR African American 110 mL/min; GFR Non-African American 91 mL/min; Glucose 122 mg/dL (74-106); Total Protein 7.7 g/dL (6.4-8.2)
== END 2018-11-29 23:48 | disposition left against medical advice (07) ==
LOC: ER 20:27
DX: R07.89 Other chest pain (principal); Z53.21 Procedure and treatment not carried out due to patient leaving prior to being seen by health care provider
CPT/HCPCS: 36415; 71045; 80053; 80307; 84484; 85025

== ENCOUNTER 2019-01-24 01:41 | Emergency (ER) | payer OTHER ==
[~2019-01-24] VITALS: Ht 182.9 cm; Wt 104.3 kg
[2019-01-24 02:08] LABS: Basophils # (auto) 0.1 uL; Basophils % (auto) 1.3 % (0.0-2.0); Eosinophils # (auto) 0 uL; Eosinophils % (auto) 0.4 % (0.0-7.0); Hematocrit 44.9 % (41.0-53.0); Hemoglobin 15.3 g/dL (13.5-17.5); Lymphocytes % (auto) 31.8 % (10.0-50.0); Mean Corpuscular Volume 96.9 fL (80.0-100.0); Monocytes # (auto) 0.7 uL; Monocytes % (auto) 10.7 % (0.0-12.0); Neutrophils # (auto) 3.6 uL; Neutrophils % (auto) 55.8 % (37.0-80.0); Platelet Count (auto) 270 10^3/uL (140-450); Red Blood Cells 4.64 10^6/uL (4.5-5.90); Red Cell Distribution Width 13.7 % (11.8-14.3); White Blood Cell 6.4 10^3/uL (4.4-10.8)
[2019-01-24 02:24] LABS: Albumin 4.2 g/dL (3.4-5.0); Potassium 3.5 mmol/L (3.5-5.1)
[2019-01-24 02:25] LABS: Acetaminophen < 2.0 ug/mL (10-30); Salicylate < 1.7 mg/dL (2.8-20.0)
[2019-01-24 02:26] LABS: BUN/Creatinine Ratio 5.3; INR < 0.93 (0.9-1.15); Partial Thromboplastin Time 24.5 sec (23.64-32.05)
[2019-01-24 02:28] LABS: Bilirubin, Total 0.3 mg/dL (0.2-1.0); Total Protein 8.4 g/dL (6.4-8.2)
[2019-01-24 03:32] LABS: Urine Bacteria NONE SEEN /hpf (None Seen); Urine Blood Negative /uL (Negative); Urine Specific Gravity 1.002 (1.001-1.035); Urine WBC <1 /hpf (0 - 3)
[2019-01-24 03:42] LABS: Amphetamine Screen, Urine NEGATIVE (NEGATIVE); Barbiturate Scree,Urine NEGATIVE (NEGATIVE); Benzodiazephine Screen, Urine NEGATIVE (NEGATIVE); Cannabinoid Screen, Urine NEGATIVE (NEGATIVE); Cocaine Screen, Urine NEGATIVE (NEGATIVE); Opiate Scree,Urine NEGATIVE (NEGATIVE); Phencyclidine Screen, Urine NEGATIVE (NEGATIVE)
[2019-01-24] MEDS ORDERED: LORazepam 0.5 MG TAB PO ONE (04:00)
[2019-01-25] MEDS ORDERED: QUEtiapine FUMARATE 100 MG TAB PO ONE (02:15)
[2019-01-25] MEDS ORDERED: traZODone HCL 50 MG TAB PO ONE (02:15)
[2019-01-25] MEDS ORDERED: METOPROLOL TARTRATE 25 MG TAB PO SCH (10:00)
[2019-01-25 13:24] VITALS: BP 139/101
[2019-01-25] MEDS ORDERED: QUEtiapine FUMARATE 100 MG TAB PO SCH (22:00)
[2019-01-25] MEDS ORDERED: traZODone HCL 50 MG TAB PO SCH (22:00)
== END 2019-01-25 13:44 | disposition short-term general hospital (02) ==
LOC: ER 01:43
DX: F41.9 Anxiety disorder, unspecified (principal); G92 Toxic encephalopathy; F10.129 Alcohol abuse with intoxication, unspecified; F32.9 Major depressive disorder, single episode, unspecified; J45.909 Unspecified asthma, uncomplicated; E78.5 Hyperlipidemia, unspecified; I10 Essential (primary) hypertension; Z86.711 Personal history of pulmonary embolism
CPT/HCPCS: 36415; 80053; 80307; 80320; 80329; 81001; 85025; 85610; 85730